=== PATIENT | female | born 1985 | race Caucasian/White ===

== ENCOUNTER → 2020-09-16 | Outpatient (CLI) | payer SELFPAY | LOC: M LABSMTC 14:31 | PROVIDERS: ATTEND Pediatrics | DX: Z20.822 Contact with and (suspected) exposure to COVID-19 (principal) ==

== ENCOUNTER 2020-12-09 21:21 | Emergency (ER) | payer BC, MEDICAID, OTHER ==
[~2020-12-09] VITALS: Ht 157.5 cm; Wt 126.3 kg
[2020-12-09 21:22] VITALS: BP 153/86
[2020-12-09] MEDS ORDERED: SPIR100T3 PO (21:32)
[2020-12-09 21:59] LABS: BASO # 0.1 10^3/uL (0.0-0.2); BASO % 0.5 % (0.0-1.0); EOS # 0.2 10^3/uL (0.0-0.5); EOS % 1.8 % (0.0-3.0); HEMATOCRIT 34.9 % (36.0-47.0); HEMOGLOBIN 9.9 g/dl (12.0-15.5); LYMPH # 1.6 10^3/uL (1.5-5.0); LYMPH % 15.2 % (24.0-44.0); MEAN CORPUSCULAR HEMOGLOBIN 20.4 pg (27.0-33.0); MEAN CORPUSCULAR HGB CONC 28.4 g/dl (32.0-36.5); MONO # 0.7 10^3/uL (0.0-0.8); MONO % 6.9 % (2.0-8.0); NEUTROPHILS % 75.3 % (36.0-66.0); PLATELET COUNT, AUTOMATED 421 10^3/uL (150-450); RED BLOOD COUNT 4.85 10^6/uL (4.00-5.40); WHITE BLOOD COUNT 10.6 10^3/uL (4.0-10.0)
[2020-12-09 22:25] LABS: ALBUMIN 3.8 GM/DL (3.2-5.2); ALT/SGPT 33 U/L (12-78); BILIRUBIN,DIRECT 0.2 MG/DL (0.0-0.2); BILIRUBIN,TOTAL 0.7 MG/DL (0.2-1.0); BLOOD UREA NITROGEN 10 MG/DL (7-18); CALCIUM LEVEL 9.4 MG/DL (8.5-10.1); CARBON DIOXIDE LEVEL 24 MEQ/L (21-32); CHLORIDE LEVEL 104 MEQ/L (98-107); CREATININE FOR GFR 0.74 MG/DL (0.55-1.30); GLOMERULAR FILTRATION RATE > 60.0 (>60); GLUCOSE, FASTING 96 MG/DL (70-100); LIPASE 110 U/L (73-393); POTASSIUM SERUM 3.8 MEQ/L (3.5-5.1); SODIUM LEVEL 137 MEQ/L (136-145); TOTAL PROTEIN 7.2 GM/DL (6.4-8.2)
[2020-12-09 22:30] LABS: HCG, SERUM QUALITATIVE NEGATIVE (NEGATIVE)
== END 2020-12-10 00:06 | disposition left against medical advice (07) ==
LOC: M ED 21:21
DX: Z53.21 Procedure and treatment not carried out due to patient leaving prior to being seen by health care provider (principal)

== ENCOUNTER → 2021-08-26 | Outpatient (CLI) | payer BC ==
[~2021-08-26] MED LIST: SPIR100T3 PO
--- NOTE | 2021-08-26 10:35 | PFTRPT ---
Site: [facility], [address] [place] [address], [id number] ID: [id number] Name: ADDY TOMLIN Visit Date: 08/26/2021 Second ID: [id number] Referring Doctor: AV HOLLINS DO Reviewing Doctor: Ranjan Parra MD Peer Support Specialist: Luis HORTON RRT Age: 36 : 1985 Sex: Female Race: Height: 62.50 Inches Weight: 264.00 Lbs BSA: 2.16 Order IDs: [id number] Requested Test(s): <RESP-PFT.PFT B/A> Diagnosis: R05.3 test meet the ATS standards for acceptability and repeatability. Pt was given four puffs of albuterol for post bronchodilator. Review Status: Not Reviewed Pre-Bronch Post-Bronch Pred Actual %Pred Actual %Chng SPIROMETRY FVC (L) 3.57 3.18 88 3.23 1 FEV1 (L) 2.98 2.81 94 2.91 3 FEV1/FVC (%) 84 88 105 90 2 FEF 25% (L/sec) 5.45 6.46 118 7.63 18 FEF 50% (L/sec) 4.38 5.47 124 6.31 15 FEF 75% (L/sec) 1.81 1.59 88 2.15 34 FEF 25-75% (L/sec) 3.25 3.96 122 4.75 19 FEF Max (L/sec) 6.78 7.09 104 7.68 8 FIVC (L) 3.33 3.32 FIF 50% (L/sec) 4.41 4.99 113 4.68 -6 FIF Max (L/sec) 5.28 4.89 -7 MVV (L/min) 103 103 100 Expiratory Time (sec) 7.07 6.38 -9 Back Extrap Vol (L) 0.12 0.14 14 Time To FEFmax (sec) 0.184 0.118 -35 LUNG VOLUMES SVC (L) 3.44 3.33 96 IC (L) 2.19 2.60 118 ERV (L) 1.25 0.73 58 TGV (L) 2.64 2.25 85 RV (Pleth) (L) 1.39 1.52 109 TLC (Pleth) (L) 4.83 4.86 100 RV/TLC (Pleth) (%) 28 31 110 DIFFUSION DLCOunc (ml/min/mmHg) 23.90 18.86 78 DL/VA (ml/min/mmHg/L) 4.95 4.41 89 VA (L) 4.83 4.28 88 BHT (sec) 9.87 IVC (L) 3.24 TLC (SB) (L) 4.43 AIRWAYS RESISTANCE Raw (cmH2O/L/s) 1.86 0.90 48 Gaw (L/s/cmH2O) 1.03 1.12 109 sRaw (cmH2O*s) 4.76 2.29 48 sGaw (1/cmH2O*s) 0.20 0.45 217
== END ==
LOC: M CARPUL 09:55
PROVIDERS: ATTEND Family Medicine
DX: R05.3 Chronic cough (principal)

== ENCOUNTER → 2022-08-10 | Outpatient (CLI) | payer BC | LOC: M RAD 12:13 | PROVIDERS: ATTEND Family Medicine | DX: M25.571 Pain in right ankle and joints of right foot (principal) ==

== ENCOUNTER → 2022-09-06 | Outpatient (CLI) | payer BC | LOC: M RAD 15:28 | PROVIDERS: ATTEND Nurse Practitioner Adult Health | DX: R06.02 Shortness of breath (principal) ==

== ENCOUNTER → 2022-10-12 | Outpatient (CLI) | payer BC ==
[~2022-10-12] MED LIST changes: +METHACHOLINE KIT INH ONE
== END ==
LOC: M CARPUL 15:01
PROVIDERS: ATTEND Nurse Practitioner Adult Health
DX: R06.02 Shortness of breath (principal)
CPT/HCPCS: 94070; J7674

== ENCOUNTER → 2024-03-19 | Outpatient (CLI) | payer OTHER ==
[~2024-03-19] MED LIST changes: -METHACHOLINE KIT INH ONE
[2024-03-19 14:32] LABS: BASO % 0.6 % (0.0-1.0); EOS # 0.2 10^3/uL (0.0-0.5); EOS % 2.6 % (0.0-3.0); HEMATOCRIT 46.6 % (36.0-47.0); HEMOGLOBIN 14.8 g/dl (12.0-15.5); LYMPH # 1.7 10^3/uL (1.5-5.0); LYMPH % 26.9 % (24.0-44.0); MEAN CORPUSCULAR HEMOGLOBIN 26.8 pg (27.0-33.0); MEAN CORPUSCULAR HGB CONC 31.8 g/dl (32.0-36.5); MEAN CORPUSCULAR VOLUME 84.3 fl (80.0-96.0); MONO # 0.4 10^3/uL (0.0-0.8); MONO % 6.8 % (2.0-8.0); NEUTROPHILS # 4.1 10^3/uL (1.5-8.5); NEUTROPHILS % 62.8 % (36.0-66.0); PLATELET COUNT, AUTOMATED 336 10^3/uL (150-450); RED BLOOD COUNT 5.53 10^6/uL (4.00-5.40); WHITE BLOOD COUNT 6.5 10^3/uL (4.0-10.0)
[2024-03-19 15:02] LABS: ALBUMIN 3.6 G/DL (3.2-5.2); ALKALINE PHOSPHATASE 74 U/L (46-116); ALT/SGPT 26 U/L (7.0-40); AST/SGOT 20 U/L (<34); BILIRUBIN,TOTAL 0.9 MG/DL (0.3-1.2); BLOOD UREA NITROGEN 8 MG/DL (9-23); CARBON DIOXIDE LEVEL 24 MMOL/L (20-31); CHLORIDE LEVEL 106 MMOL/L (98-107); CHOLESTEROL LEVEL 177 MG/DL (<200); CHOLESTEROL RISK RATIO 4.38 (<5); CREATININE FOR GFR 0.67 MG/DL (0.55-1.30); GLOMERULAR FILTRATION RATE > 60.0 (>60); GLUCOSE, FASTING 94 MG/DL (60-100); HDL CHOLESTEROL 40.4 MG/DL (>40); LDL CHOLESTEROL 104.8 MG/DL (<100); MAGNESIUM LEVEL 1.8 MG/DL (1.8-2.4); NON-HDL-C 136.6 MG/DL; POTASSIUM SERUM 4.3 MMOL/L (3.5-5.1); SODIUM LEVEL 138 MMOL/L (136-145); TOTAL PROTEIN 6.9 G/DL (5.7-8.2); TRIGLYCERIDES LEVEL 159 MG/DL (<150)
[2024-03-19 15:03] LABS: FERRITIN 6.2 NG/ML (7.3-270.7)
[2024-03-19 15:04] LABS: FREE T3 3.3 PG/ML (2.3-4.2); THYROID STIMULATING HORMONE 2.215 uIU/ML (0.55-4.78)
[2024-03-19 15:06] LABS: FOLATE 7.07 NG/ML (>5.4)
[2024-03-19 15:25] LABS: HEMOGLOBIN A1c 5.2 % (4.0-6.0)
== END ==
LOC: M EKG 13:30
PROVIDERS: ATTEND Nurse Practitioner Psychiatric/Mental Health
DX: F43.20 Adjustment disorder, unspecified (principal)

== ENCOUNTER 2024-09-05 10:04 | Emergency (ER) | payer OTHER ==
[~2024-09-05] VITALS: Ht 162.6 cm; Wt 138.9 kg
[2024-09-05] MEDS ORDERED: AMPH1CAP14 (10:24)
[2024-09-05] MEDS ORDERED: FLUO-290 (10:24)
[2024-09-05] MEDS ORDERED: HYDR-3363 (10:24)
[2024-09-05 12:33] LABS: BASO # 0.1 10^3/uL (0.0-0.2); EOS # 0.2 10^3/uL (0.0-0.5); EOS % 4.3 % (0.0-3.0); HEMATOCRIT 46.1 % (36.0-47.0); LYMPH # 1.7 10^3/uL (1.5-5.0); MEAN CORPUSCULAR HEMOGLOBIN 30.1 pg (27.0-33.0); MEAN CORPUSCULAR HGB CONC 32.5 g/dl (32.0-36.5); MEAN CORPUSCULAR VOLUME 92.4 fl (80.0-96.0); MONO # 0.6 10^3/uL (0.0-0.8); MONO % 10.7 % (2.0-8.0); NEUTROPHILS # 2.7 10^3/uL (1.5-8.5); NEUTROPHILS % 51.8 % (36.0-66.0); PLATELET COUNT, AUTOMATED 320 10^3/uL (150-450); RED BLOOD COUNT 4.99 10^6/uL (4.00-5.40); WHITE BLOOD COUNT 5.2 10^3/uL (4.0-10.0)
[2024-09-05 13:07] LABS: BLOOD UREA NITROGEN < 5 MG/DL (9-23); CARBON DIOXIDE LEVEL 24 MMOL/L (20-31); CHLORIDE LEVEL 106 MMOL/L (98-107); CREATININE FOR GFR 0.58 MG/DL (0.55-1.30); GLOMERULAR FILTRATION RATE > 60.0 (>60); GLUCOSE, FASTING 88 MG/DL (60-100); POTASSIUM SERUM 3.9 MMOL/L (3.5-5.1); SODIUM LEVEL 140 MMOL/L (136-145)
[2024-09-05 14:31] LABS: CK-MB VALUE MASS < 1.0 NG/ML (<3.6)
[2024-09-05 14:33] LABS: CPK CREATINE PHOSPHOKINASE 96 U/L (34-145); MB/CK RELATIVE INDEX 1.04 (< OR =4)
[2024-09-05 14:58] VITALS: BP 151/90; TEMP 97.3; O2SAT 98
== END 2024-09-05 15:01 | disposition home or self-care (01) ==
LOC: M ED 10:04
DX: I10 Essential (primary) hypertension (principal); Z79.899 Other long term (current) drug therapy

== ENCOUNTER → 2025-05-24 | Outpatient (CLI) | payer OTHER ==
[~2025-05-24] MED LIST changes: +AMPH1CAP14; +FLUO-290; +HYDR-3363
[2025-05-24 18:13] LABS: ESTIMATED AVERAGE GLUCOSE 111.0 MG/DL (60-110)
== END ==
LOC: M PLALAB 16:20
PROVIDERS: ATTEND Nurse Practitioner Family
DX: E28.2 Polycystic ovarian syndrome (principal)